=== PATIENT | female | born 1950 | race Two or more races ===

== ENCOUNTER 2017-11-22 06:21 | Day surgery (SDC) | payer OTHER ==
[~2017-11-22 06:21] MED LIST: CRESTOR40 MG PO; HYZAAR 100-251 EACH PO; LIBRAX PO; ZANTAC150 MG PO
[2017-11-22] MEDS ORDERED: NAPROXEN500 M1 PO (11:07)
== END 2017-11-22 15:15 | disposition home or self-care (01) ==
LOC: CIR.AMB 06:21
DX: N95.0 Postmenopausal bleeding (principal); N71.1 Chronic inflammatory disease of uterus

== ENCOUNTER 2019-01-17 08:19 | Outpatient (CLI) | payer OTHER ==
[~2019-01-17 08:19] MED LIST changes: +NAPROXEN500 M1 PO
== END 2019-01-17 08:31 | disposition home or self-care (01) ==
LOC: SONOGRAMA 08:19
DX: E04.1 Nontoxic single thyroid nodule (principal)